=== PATIENT | male | born 1990 | race African-American/Black ===

== ENCOUNTER 2025-04-09 20:38 | Emergency (ER) | payer SELFPAY ==
[~2025-04-09] VITALS: Ht 180.3 cm; Wt 78.0 kg
[2025-04-09 20:48] VITALS: BP 130/86; PULSE 86; RESP 20; TEMP 37; O2SAT 97
== END 2025-04-10 00:55 | disposition home or self-care (01) ==
LOC: ER 20:55
DX: T65.891A Toxic effect of other specified substances, accidental (unintentional), initial encounter (principal); Z98.890 Other specified postprocedural states; Y92.89 Other specified places as the place of occurrence of the external cause
CPT/HCPCS: 99283